=== PATIENT | female | born 1970 | race Caucasian/White ===

== ENCOUNTER 2024-02-13 16:43 | Emergency (ER) | payer OTHER, SELFPAY ==
[2024-02-13 16:48] VITALS: BP 178/96; PULSE 65; RESP 18; TEMP 36.2; O2SAT 98; BMI 30.7
--- NOTE | 2024-02-13 16:51 | DI.RAD.S_ITS ---
PROCEDURE: XR FOOT LT MIN 3V INDICATIONS: 4x4 fell on foot TECHNIQUE: 3 views of the foot were acquired. COMPARISON: None. FINDINGS: Bones: 2nd metatarsal distal transverse fracture. Mild displacement. No dislocations. No suspicious bony lesions. Small plantar calcaneal spur. Soft tissues: Mild soft tissue swelling at the dorsal aspect of the foot. No tibiotalar joint effusion. Achilles tendon appears normal. IMPRESSION: Distal 2nd metatarsal fracture. Dictated by: Rinku Javed M.D. on 02/13/2024 at 17:33 Approved by: Rinku Javed M.D. on 02/13/2024 at 17:36
--- NOTE | 2024-02-13 17:59 | ED_ITS ---
HPI - Extremity Injury (Lower) <Silvana Nguyen PA-C - Last Filed: 02/13/24 18:53> General Chief Complaint: Extremity Injury, Lower Stated Complaint: Broken L Foot Time Seen by Provider: 02/13/24 16:58 Source: patient Mode of arrival: Wheelchair History of Present Illness HPI Narrative: Patient is a very pleasant 53-year-old female that presents to the emergency room department today with family. She presents with dorsal left foot pain. 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 She was carrying a large wooden table. She would accidentally lost hold of it and it fell onto the dorsal aspect of her left foot. She immediately had discomfort and pain. Having pain with ambulation. Brought to the emergency room department. X-ray was taken. She currently has a transverse fracture of the 2nd metatarsal of her left foot. The patient had an x-ray prior to being brought to the fast track area. Brought back to room 5. No other further complaints. No treatment prior to being seen in the emergency room department. The only treatment was elevation of the foot. Related Data Previous Rx's Medication Instructions Recorded hydrocodone 5 mg-acetaminophen 325 1 tab PO Q4-6H PRN pain #20 tabs 02/13/24 mg tablet ondansetron HCl 4 mg tablet 4 mg PO Q8-12H PRN nausea and 02/13/24 vomiting #14 tabs Allergies Allergy/AdvReac Type Severity Reaction Status Date / Time No Known Drug Allergies Allergy Verified 02/13/24 16:51 Review of Systems <Silvana Nguyen PA-C - Last Filed: 02/13/24 18:53> Review of Systems Narrative: Negative except as above Musculoskeletal Comments: Left dorsal foot pain Patient History <Silvana Nguyen PA-C - Last Filed: 02/13/24 18:53> Social History Smoking Status: Never smoker Smoking Status: Never smoker alcohol intake frequency: 3 or more drinks per day Substance Use Type: does not use Exam <Silvana Nguyen PA-C - Last Filed: 02/13/24 18:53> Initial Vital Signs Initial Vital Signs: Vital Signs Temperature 97.2 F L 02/13/24 16:48 Pulse Rate 65 02/13/24 16:48 Respiratory Rate 18 02/13/24 16:48 Blood Pressure 178/96 H 02/13/24 16:48 Pulse Oximetry 98 02/13/24 16:48 Oxygen Delivery Method Room Air 02/13/24 16:48 Reviewed Const General: cooperative, healthy appearing, comfortable, well developed and well groomed Eyes General: Yes appearance normal, both eyes and all related structures Pupils: PERRL EOM: EOM intact bilaterally Neuro General: patient alert, patient awake, patient oriented x3, oriented and gait normal Cranial Nerves: CN's II-XI intact bilaterally Cognition: normal cognition Speech: speech normal Gait: other (Wheelchair due to discomfort and pain in the left foot) Motor: muscle tone normal throughout and strength 5/5 throughout Extrem Other: Range of motion, strength, pulses are preserved in the upper extremities right lower extremity. Cap refill pulses are present in the left lower extremity. Patient pain in decreased range of motion of the left foot due to discomfort and pain. She is pain in the dorsal aspect of the foot. <Natan Trotter DO - Last Filed: 02/14/24 07:03> Initial Vital Signs Initial Vital Signs: Vital Signs Temperature 97.2 F L 02/13/24 16:48 Pulse Rate 65 02/13/24 16:48 Respiratory Rate 18 02/13/24 16:48 Blood Pressure 178/96 H 02/13/24 16:48 Pulse Oximetry 98 02/13/24 16:48 Oxygen Delivery Method Room Air 02/13/24 16:48 Procedures <Silvana Nguyen PA-C - Last Filed: 02/13/24 18:53> Orthopedic Splinting/Casting Injury #1: Time of procedure: 18:30 Side: left Lower Extremity Injury Location: foot Other Orthopedic Equipment: crutches and other Placed by: Nursing Course <Silvana Nguyen PA-C - Last Filed: 02/13/24 18:53> Orders Ordered: Discontinued Medications Ketorolac Tromethamine (Ketorolac 30 Mg/Ml Vial) 30 mg IM NOW ONE Stop: 02/13/24 18:16 Last Admin: 02/13/24 18:34 Dose: 30 mg Documented By: VENESSA Ondansetron HCl (Ondansetron 4 Mg Odt) 4 mg SL NOW ONE Stop: 02/13/24 18:16 Last Admin: 02/13/24 18:34 Dose: 4 mg Documented By: VENESSA Oxycodone HCl (Oxycodone Ir 5 Mg Tablet) 5 mg PO NOW ONE Stop: 02/13/24 18:16 Last Admin: 02/13/24 18:35 Dose: 5 mg Documented By: VENESSA Vital Signs Vital signs: Vital Signs - 8 hr 02/13/24 16:48 Temperature 97.2 F L Pulse Rate 65 Respiratory Rate 18 Blood Pressure 178/96 H Pulse Oximetry 98 Oxygen Delivery Method Room Air <Natan Trotter DO - Last Filed: 02/14/24 07:03> Orders Ordered: Discontinued Medications Ketorolac Tromethamine (Ketorolac 30 Mg/Ml Vial) 30 mg IM NOW ONE Stop: 02/13/24 18:16 Last Admin: 02/13/24 18:34 Dose: 30 mg Documented By: VENESSA Ondansetron HCl (Ondansetron 4 Mg Odt) 4 mg SL NOW ONE Stop: 02/13/24 18:16 Last Admin: 02/13/24 18:34 Dose: 4 mg Documented By: VENESSA Oxycodone HCl (Oxycodone Ir 5 Mg Tablet) 5 mg PO NOW ONE Stop: 02/13/24 18:16 Last Admin: 02/13/24 18:35 Dose: 5 mg Documented By: VENESSA Vital Signs Vital signs: Vital Signs - 8 hr 02/13/24 16:48 Temperature 97.2 F L Pulse Rate 65 Respiratory Rate 18 Blood Pressure 178/96 H Pulse Oximetry 98 Oxygen Delivery Method Room Air MDM - Extremity Injury (Lower) <Silvana Nguyen PA-C - Last Filed: 02/13/24 18:53> Imaging Data Extremity x-ray #1: Radiologist's Impression: [address] [id number] XRay Report Signed Patient: Makenzie De Leon MR#: [id number] : 1970 Acct:[id number] Age/Sex: 53 / F Date of Service: 02/13/24 Loc: ED Accession Number: [id number] Procedure: XR foot LT min 3V Ordering Provider: Natan Trotter D.O. PROCEDURE: XR FOOT LT MIN 3V INDICATIONS: 4x4 fell on foot TECHNIQUE: 3 views of the foot were acquired. COMPARISON: None. FINDINGS: Bones: 2nd metatarsal distal transverse fracture. Mild displacement. No dislocations. No suspicious bony lesions. Small plantar calcaneal spur. Soft tissues: Mild soft tissue swelling at the dorsal aspect of the foot. No tibiotalar joint effusion. Achilles tendon appears normal. IMPRESSION: Distal 2nd metatarsal fracture. Dictated by: Rinku Javed M.D. on 02/13/2024 at 17:33 Approved by: Rinku Javed M.D. on 02/13/2024 at 17:36 [facility] Narrative Medical decision making narrative: Patient is a pleasant 53-year-old female who presents to the emergency room department today complaints of dorsal left foot pain after dropping a table on her foot. Patient brought to the emergency room department by family. Elevation of the foot prior to treatment here in the emergency department. No ice, nothing for pain by mouth. X-ray shows a transverse fracture of the 2nd metatarsal. 30 mg of IM Toradol 5 mg of p.o. oxycodone Walking boot Crutches Ortho referral L and I paperwork Prescriptions Patient discharged stable condition Differential diagnosis 2nd metatarsal fracture Discharge Plan Departure Patient Disposition: Home Clinical Impression: Metatarsal fracture Qualifiers: Encounter type: initial encounter Metatarsal bone: second Fracture type: closed Fracture alignment: displaced Laterality: left Qualified Code(s): S92.322A - Displaced fracture of second metatarsal bone, left foot, initial encounter for closed fracture Activity Restrictions/Additional Instructions: Crutches, nonweightbearing. Prescriptions have been sent to your pharmacy. Please call make an appointment to follow up with Dr. Gilman. Prescriptions: New ondansetron HCl 4 mg tablet 4 mg PO Q8-12H PRN (Reason: nausea and vomiting) Qty: 14 0RF hydrocodone-acetaminophen 5-325 mg tablet 1 tab PO Q4-6H PRN (Reason: pain) Qty: 20 0RF Referrals: Beny Gilman MD [Physician] - (You are being referred to the provider (or provider group) listed but no appointment has been made. Please call the provider?s office within the next day or two at the phone number above to make an appointment.) Stand Alone Forms: Patient Portal/API, Work Release Note ED Sign-out <Natan Trotter DO - Last Filed: 02/14/24 07:03> Cosign ED Attending Cosignature Attestation: Dr Trotter Co-Sign Statement: I was available for consultation during this patient's emergency department visit. This chart is signed by myself for administrative purposes only. I did not have direct contact with this patient during this visit. They were seen independently by the APC.
[2024-02-13] MEDS: KETOROLAC 30 MG/ML VIAL IM (18:34)
[2024-02-13] MEDS: ONDANSETRON 4 MG ODT SL (18:34)
[2024-02-13] MEDS: OXYCODONE IR 5 MG TABLET PO (18:35)
[2024-02-13 18:50] VITALS: RESP 17
== END 2024-02-13 18:51 | disposition home or self-care (01) ==
PROVIDERS: Emergency Provider Physician Assistant
DX: S92.322A Displaced fracture of second metatarsal bone, left foot, initial encounter for closed fracture (principal); W22.8XXA Striking against or struck by other objects, initial encounter
CPT/HCPCS: 73630; 96372; 99283; J1885